=== PATIENT | female | born 1955 | race Caucasian/White ===

== ENCOUNTER → 2016-07-27 | Outpatient (CLI) | payer BC | LOC: GMAB 11:11 | PROVIDERS: ATTEND Family Medicine | DX: E55.9 Vitamin D deficiency, unspecified (principal); Z01.818 Encounter for other preprocedural examination ==

== ENCOUNTER → 2016-07-28 | Outpatient (CLI) | payer BC | LOC: GMAB 19:22 | PROVIDERS: ATTEND Family Medicine | DX: N39.0 Urinary tract infection, site not specified (principal) ==

== ENCOUNTER → 2016-08-04 | Outpatient (CLI) | payer BC | LOC: GMAB 17:45 | PROVIDERS: ATTEND Family Medicine | DX: N39.0 Urinary tract infection, site not specified (principal) ==

== ENCOUNTER → 2016-12-24 | Outpatient (CLI) | payer BC ==
--- NOTE | 2016-12-25 15:13 | CT ---
EXAM DESCRIPTION: CT ABDOMEN AND PELVIS WITHOUT AND WITH CONTRAST CLINICAL HISTORY: COMPLEX RENAL CYST COMPARISON: February 26, 2015 TECHNIQUE: CT of the abdomen and pelvis are performed prior to and during IV bolus administration of nonionic contrast. Oral contrast enhancement was not utilized This exam was performed according to our departmental dose-optimization program, which includes automated exposure control, adjustment of the mA and/or kV according to patient size and/or use of iterative reconstruction technique. FINDINGS: The lung bases are clear with normal cardiac size and no evidence of hiatal hernia or effusion or infiltrate Noncontrast imaging demonstrates surgical absence of the gallbladder and evidence of prior lumbosacral instrumentation and internal fixation diastases of the rectus muscles near the umbilicus with an eventration of the anterior abdominal wall at and just above the umbilicus is present with at least a small additional ventral hernia at the superior margin of the eventration the unenhanced liver and spleen are unremarkable. An oval approximate 3 x 4 cm exophytic low-density mass involving the mid left kidney posteriorly laterally is present and has attenuation values of approximately 17 Hounsfield units The oval cystic mass behind the left kidney is unchanged unenhanced examination with an attenuation value of 20 Hounsfield units and is stable in comparison to prior 2015 examination. No wall thickening or calcification or soft tissue mass component is noted. On the right there is a slightly lobulated 1.5 cm low-density probable cyst involving the posterior cortex of the mid right kidney that has increased from approximately 1 cm in size to 1.5 cm since 2015. Tiny focus of calcification posteriorly is evident. Attenuation value is between 19 and 24 Hounsfield units in measures actually slightly less on the enhanced study suggesting this represents a small complicated cyst. No significant solid component is noted. Because of interval enlargement since 2014 follow-up study in 6-9 months is recommended. The liver is fatty replaced and there is a focal 1.5 cm low-density lesion in the anterior aspect of the left lobe. The spleen and pancreas and adrenal glands are unremarkable. Hepatic sonography is recommended for further evaluation of the liver lesion lower pole of the right kidney posteriorly can be evaluated at the same time. Minimal levoscoliosis of the spine with the extensive five level hardware from L3 through the sacrum is noted IMPRESSION: 1. Stable approximate 3 x 4 cm relatively simple appearing left renal cyst posterior laterally. 2. 1.5 cm slightly lobulated and slightly enlarged right renal cyst involving the posterior mid kidney cortex with one tiny punctate area of calcification in the cyst wall. Slight interval growth over a two-year period is noted 3. Focal 1.5 cm nonspecific lesion left lobe of the liver anteriorly. Further evaluation of the liver and right kidney is sonographically is recommended. The right kidney will likely require longer term CT or MR follow-up for reassessment of the enlarging slightly complicated right renal cyst 4. 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 Extensive prior lower lumbar and sacral surgery with internal fixation. Electronically signed by: Fareed Mcgraw MD 12/25/2016 3:11 PM CDT
== END ==
LOC: CT 08:20
PROVIDERS: ATTEND Urology
DX: N28.1 Cyst of kidney, acquired (principal)

== ENCOUNTER → 2017-04-21 | Outpatient (CLI) | payer BC ==
--- NOTE | 2017-04-22 08:42 | CT ---
EXAM DESCRIPTION: Abdomen/Pelvis w/Contrast CLINICAL HISTORY: PAIN. Liver mass. COMPARISON: CT scan of the abdomen and pelvis without and with IV contrast 12/24/2016. CT abdomen with IV contrast 02/26/2015. TECHNIQUE: Spiral-axial scans at 5.0 mm intervals through the abdomen after nonionic IV contrast, arterial phase. Same interval scans, abdomen through pelvis, venous phase. No oral contrast. Coronal and sagittal 2.0 mm reconstructions. Delayed scans, liver through the pelvis. Axial-spiral 5mm. No adverse reactions. Total Exam DLP: 1893.47 mGy-cm. This exam was performed according to our departmental dose-optimization program which includes automated exposure control, adjustment of the mA and/or kV according to patient size and/or use of iterative reconstruction technique; to reduce radiation dose to as low as reasonably achievable (ALARA). FINDINGS: Lung bases and pleura: Negative. Liver, Stomach, Spleen, Adrenal Glands: In the arterial phase, the mass seen on the prior study shows minimal enhancement compared to the surrounding parenchyma. On the venous phase, the mass is enhancing less than the surrounding parenchyma. This mass is measuring 1.5 x 1.4 x 1.3 cm in the junction of the lateral and medial segments of the left hepatic lobe, approximately 2 cm from the anterior capsule. Increased but inhomogeneous enhancement in the mass on the delayed images. No other foci of enhancement are nonenhancement in the liver. Unusual distribution of gas abutting the anterior gastric wall of the greater curvature of the body. Normal density of the surrounding fat. Spleen and adrenal glands are unremarkable. Pancreas, Gallbladder, Ducts: Surgical clips in the gallbladder fossa with no fluid. Common duct not dilated. Pancreas negative. Kidneys and Ureters: 2 cm cyst posterior cortex of the right kidney. 3.5 cm cyst juxta cortical inferior left kidney. Anterior cortical atrophy left kidney which is smaller than the right kidney. No hydronephrosis no calcifications or perirenal fluid bilaterally. No radiodense stones in the ureters normal caliber. Mesentery: No free air. No fatty stranding and fluid or fascial thickening. Aorta: Mild to moderate atherosclerotic calcification. No aneurysm or significant ectasia. Small Bowel: Contains fluid and minimal gas no distention. Terminal Ileum/Cecum: Normal caliber with gas and fluid. Appendix not seen. Normal density of the surrounding fat. Colon: No distention. Surgical sutures indicating possible anastomosis at the rectosigmoid. Pelvic Organs: No radiodense stones in the urinary bladder. Vaginal cuff is unremarkable. No fluid in the cul-de-sac. Pelvic vascular calcifications. Spine and Bony Pelvis: L3-S1 posterior spinal fusion. Artifact limits evaluation of the bony structures of the vertebra. Minimal spondylosis lower thoracic spine. Posterior midline low-density in the junction of the subcutaneous fat and paraspinal muscles which has decreased in size since the prior study. Abdominal Wall/Back Soft Tissues: Minimal diastases of abdominal fat at the umbilicus not containing bowel. IMPRESSION: 1. Delayed enhancing mass in the lateral segment of the left hepatic lobe appears stable in size compared to prior scans in 2014 and December 2016. The appearance of the delayed enhancement is more consistent with a hemangioma. Consider follow-up hemangioma CT protocol in six month interval. 2. Stable renal cysts since 2014. 3. Stable lumbar spinal fusion since December 2016. Small fluid collection posterior midline subcutaneous tissues is decreasing. 4. Stable anastomosis rectosigmoid since December 2016. Electronically signed by: Kevan Edwards MD 04/22/2017 8:41 AM CDT
--- NOTE | 2017-04-22 14:54 | MAM ---
EXAM DESCRIPTION: 3D Screening BILATERAL CLINICAL HISTORY: 61 yearsFemaleSCREENING . No complaints. No family history breast cancer. Postmenopausal. Has taken HRT less than than five years ago. Cyst aspiration and biopsy on the right. COMPARISON: 2-D digital screening bilateral study 05/07/2015. No prior reports available. TECHNIQUE: Bilateral CC and MLO projection full-field images, 3-D tomosynthesis digital mammographic technique. Also bilateral synthesized CC/ MLO full-field images. CAD not utilized. FINDINGS: The breast parenchymal density pattern is: Scattered areas of fibroglandular density. No skin thickening or nipple retraction . Bilateral solitary microcalcifications. No focal, stellate mass or density, focal asymmetry , and no suspicious microcalcifications bilaterally. Stable mammograms compared to prior study, taking into account differences in mammographic technique IMPRESSION: BI-RADS CATEGORY: 2 - BENIGN FINDINGS. FOLLOW UP: Routine digital bilateral screening, one year interval from April 2017. Written communication explaining the IMPRESSION and follow-up, will be mailed to the patient and referring health care provider. According to the [employer], yearly mammograms are recommended starting at age 40 and continuing as long as a woman is in good health. Any breast change noted on a breast self-exam should be reported promptly to the patient's healthcare provider. Breast MRI is recommended for women with an approximately 20-25% or greater lifetime risk of breast cancer, including women with a strong family history of breast or ovarian cancer and women who have been treated for Hodgkin's disease. A negative mammographic report should not delay tissue diagnosis in patients with significant clinical history or physical findings. Extremely dense breast tissue limits the sensitivity of digital mammography. Electronically signed by: Kevan Edwards MD 04/22/2017 2:52 PM CDT
== END | disposition home or self-care (01) ==
LOC: CT 09:33
PROVIDERS: ATTEND Internal Medicine Infectious Disease
DX: Z12.31 Encounter for screening mammogram for malignant neoplasm of breast (principal); R16.0 Hepatomegaly, not elsewhere classified
CPT/HCPCS: 36415; 74177; 77063; 82565; 84520; G0202

== ENCOUNTER → 2017-05-31 | Outpatient (CLI) | payer BC | END | disposition home or self-care (01) | LOC: LAB.O 08:59 | PROVIDERS: ATTEND Internal Medicine Infectious Disease | DX: Z00.00 Encounter for general adult medical examination without abnormal findings (principal); B96.89 Other specified bacterial agents as the cause of diseases classified elsewhere ==

== ENCOUNTER → 2017-07-08 | Outpatient (CLI) | payer BC | END | disposition home or self-care (01) | LOC: GMAB 10:17 | PROVIDERS: ATTEND Family Medicine | DX: N39.0 Urinary tract infection, site not specified (principal); Z00.01 Encounter for general adult medical examination with abnormal findings ==

== ENCOUNTER → 2018-04-18 | Outpatient (CLI) | payer BC ==
--- NOTE | 2018-04-18 13:15 | CT ---
EXAM DESCRIPTION: Abdomen w/wo Contrast CLINICAL HISTORY: 62 years Female, CYST OF KIDNEY COMPARISON: CT abdomen and pelvis dated April 21, 2017. TECHNIQUE: Contiguous axial images through the abdomen were performed with and without intravenous contrast administration. FINDINGS: The imaged lower thorax appears normal. The liver demonstrates diffuse fatty infiltration. The gallbladder is surgically absent. The pancreas, spleen and bilateral adrenal glands appear normal. Stable exophytic simple cyst in the interpolar region of the left kidney. Stable 1.7 cm hypodense lesion in the interpolar region of the right kidney compared to prior CT dated 04/21/2017. The distal esophagus, stomach, small and large bowel loops appear normal. 2.5 cm fat-containing ventral hernia is noted. Posterior spinal fixation hardware is noted traversing the lower lumbar spine. IMPRESSION: Stable cystic lesions are identified in bilateral kidneys. Hepatic steatosis. This exam was performed according to our departmental dose-optimization program, which includes automated exposure control, adjustment of the mA and/or kV according to patient size and/or use of iterative reconstruction technique. Electronically signed by: Radha Arzola MD 04/18/2018 1:14 PM CDT
== END ==
LOC: CT 08:28
PROVIDERS: ATTEND Urology
DX: N28.1 Cyst of kidney, acquired (principal); K76.0 Fatty (change of) liver, not elsewhere classified

== ENCOUNTER → 2018-04-25 | Outpatient (CLI) | payer BC ==
--- NOTE | 2018-04-26 19:47 | MAM ---
EXAM DESCRIPTION: 3D Screening BILATERAL : Digital Mammography. CLINICAL HISTORY: 62 years Female SCREENING . No complaints. No personal history or family history of breast cancer. Prior benign right breast biopsy. Childbirth. Postmenopausal 25 years. Taken HRT 5 or more years ago.. Lifetime risk of developing breast cancer (Tyrer-Cuzick model)(%): 10.2. COMPARISON: Bilateral screening digital breast tomosynthesis 04/21/2017. TECHNIQUE: Bilateral CC and MLO projection full-field images, Digital tomosynthesis mammographic technique. Bilateral digital 2-D full-field MLO images. CAD not utilized. FINDINGS: The breast parenchymal density pattern is: Scattered areas of fibroglandular density. No skin thickening or nipple retraction. Right axillary lymph nodes. Bilateral solitary microcalcifications. Small nodular mass density which is interpreted to have enlarged since the prior study and is at the 300 clock position of the anterior and middle thirds of the right breast. No new focal, stellate mass or density, focal asymmetry , and no suspicious microcalcifications left breast. IMPRESSION: BI-RADS CATEGORY: 0 - INCOMPLETE- Need additional imaging evaluation. FOLLOW-UP: Recall for additional imaging: Full-field tomosynthesis of the right breast, special focal images, and targeted right breast ultrasound if indicated by diagnostic images. Written communication concerning the IMPRESSION and Follow-up, will be mailed to the patient and referring health care provider. Electronically signed by: Kevan Edwards MD 04/26/2018 7:46 PM CDT
== END ==
LOC: MAMMO 11:30
PROVIDERS: ATTEND Family Medicine
DX: Z12.31 Encounter for screening mammogram for malignant neoplasm of breast (principal)

== ENCOUNTER → 2018-05-03 | Outpatient (CLI) | payer BC ==
--- NOTE | 2018-05-03 16:27 | US ---
EXAM DESCRIPTION: Breast,Right: Ultrasound CLINICAL HISTORY: 62 yearsFemaleABN MAMMO COMPARISON: Digital diagnostic tomosynthesis right breast on this visit. Bilateral screening digital breast tomosynthesis 04/25/2018. TECHNIQUE: Transcutaneous scanning of the right breast utilizing mulligan-scale and Doppler modes. Scanning performed by the auto body painter and Dr. Edwards. FINDINGS: Scanning medial right breast. Heterogeneous fibroglandular and fatty echotexture. At the 3:30 position of the right breast 2 cm from the nipple is a hypoechoic mass with circumscribed margins and echogenic eccentric region and minimal posterior shadowing features. Parallel orientation measuring 4.7 x 3.1 mm and not vascular. Differential includes lymph node and fibroadenoma. Scanning at the 2:30 clock position 2 cm from the nipple. Heterogeneous structure with lobulated and smooth margins mostly hypoechoic measuring 5.2 x 5.1 x 4.4 mm with posterior shadowing and parallel features. Echogenic region within this nodule is vascular suggesting a lymph node. At the 3:00 position 2 cm from the nipple is a hypoechoic nodule with lobular and circumscribed margins measuring 5.4 mm. Mixed posterior enhancement and shadowing. Nonvascular. Multiple ducts are also noted in the retroareolar tissue. IMPRESSION: BI-RADS CATEGORY: 3 - PROBABLY BENIGN. Management: Short interval (6-month) follow-up mammography with continued surveillance targeted right breast ultrasound, September 2018. The FINDINGS and the FOLLOW-UP plan were reviewed in person with the patient after the examination. Written communication explaining the IMPRESSION and FOLLOW-UP will be mailed to the patient and referring care provider. Electronically signed by: Kevan Edwards MD 05/03/2018 4:26 PM CDT
--- NOTE | 2018-05-04 14:29 | MAM ---
EXAM DESCRIPTION: 3D Diagnostic, Right: Digital Mammography CLINICAL HISTORY: 62 yearsFemaleABNORMAL MAMMO . Mass density medial mid right breast.. COMPARISON: Bilateral screening digital breast tomosynthesis 04/25/2018. Targeted right breast ultrasound included with this examination.. TECHNIQUE: Right LM projection full-field images, digital mammographic tomosynthesis technique. Spot digital imaging of the anterior medial right breast in the CC and MLO projections. CAD not utilized. FINDINGS: The breast parenchymal density pattern is: Scattered areas of fibroglandular density. No skin thickening or nipple retraction mass density with partially circumscribed margins is again visualized at the 300 clock position 3 to 4 cm from the breast just medial to the posterior nipple line. No abnormal microcalcifications. Ultrasound: Scanning medial right breast. Heterogeneous fibroglandular and fatty echotexture. At the 3:30 position of the right breast 2 cm from the nipple is a hypoechoic mass with circumscribed margins and echogenic eccentric region and minimal posterior shadowing features. Parallel orientation measuring 4.7 x 3.1 mm and not vascular. Differential includes lymph node and fibroadenoma. Scanning at the 2:30 clock position 2 cm from the nipple. Heterogeneous structure with lobulated and smooth margins mostly hypoechoic measuring 5.2 x 5.1 x 4.4 mm with posterior shadowing and parallel features. Echogenic region within this nodule is vascular suggesting a lymph node. At the 3:00 position 2 cm from the nipple is a hypoechoic nodule with lobular and circumscribed margins measuring 5.4 mm. Mixed posterior enhancement and shadowing. Nonvascular. Multiple ducts are also noted in the retroareolar tissue. IMPRESSION: BI-RADS CATEGORY: 3 - PROBABLY BENIGN. Management: Short interval (6-month) follow-up digital diagnostic right breast mammography and continued surveillance targeted right breast ultrasound. The FINDINGS and the FOLLOW-UP plan were reviewed in person with the patient after the examination. Written communication explaining the IMPRESSION and FOLLOW-UP will be mailed to the patient and referring care provider. Electronically signed by: Keavn Edwards MD 05/04/2018 2:20 PM CDT
== END ==
LOC: MAMMO 08:52
PROVIDERS: ATTEND Family Medicine
DX: R92.2 Inconclusive mammogram (principal)
CPT/HCPCS: 76641; 77065; G0279

== ENCOUNTER → 2018-07-23 | Outpatient (CLI) | payer BC ==
--- NOTE | 2018-07-23 10:41 | RAD ---
PROCEDURE: XR Left Tibia and Fibula, 2 Views CLINICAL INDICATION: The patient is 63 years old and is Female; LEG PAIN TECHNIQUE: Frontal and lateral views of the left tibia and fibula. COMPARISON: No relevant prior studies available. FINDINGS: BONES/JOINTS: There is a complete transverse noncomminuted nondisplaced fracture through the proximal one third of the LEFT fibula. SOFT TISSUES: There is overlying lateral soft tissue swelling. IMPRESSION: There is a complete transverse noncomminuted nondisplaced fracture through the proximal one third of the LEFT fibula. Electronically signed by: Yonathan Junior MD 07/23/2018 10:40 AM [facility]
== END ==
LOC: RAD 10:06
PROVIDERS: ATTEND Physician Assistant
DX: S82.832A Other fracture of upper and lower end of left fibula, initial encounter for closed fracture (principal)

== ENCOUNTER → 2018-09-06 | Outpatient (CLI) | payer BC | LOC: GMAE 10:47 | PROVIDERS: ATTEND Family Medicine | DX: Z00.01 Encounter for general adult medical examination with abnormal findings (principal) ==

== ENCOUNTER → 2018-09-14 | Outpatient (CLI) | payer BC ==
--- NOTE | 2018-09-15 10:54 | MAM ---
EXAM DESCRIPTION: 3D Diagnostic, Right: Digital Mammography CLINICAL HISTORY: 63 yearsFemale6 MONTH FOLLOW UP nodular densities right breast mammography and ultrasound. COMPARISON: Bilateral screening digital breast tomosynthesis 04/25/2018. Right breast targeted ultrasound and right breast diagnostic digital breast tomosynthesis 05/03/2018. TECHNIQUE: Right breast LM CC and MLO projection full-field images, digital mammographic tomosynthesis technique. Right breast 2-D digital full-field MLO images. Right breast 2-D Spot compression cc and MLO projections CAD not available. FINDINGS: The breast parenchymal density pattern is: Scattered areas of fibroglandular density. No skin thickening or nipple retraction solitary microcalcifications. Enlarging retroareolar density compared to the prior study. No abnormal microcalcifications. Ultrasound: Scanning of the anterior right breast retroareolar and right upper quadrant from the nipple to 2 cm posteriorly. Mixture of fibroglandular fibrocystic and fatty echotexture is. At the 2:30 position 2 cm from the nipple, is a hypoechoic mass with lobulated and circumscribed margins partly partially echogenic margins. Taller than wide orientation 4.3 x 3.1 mm. Vascularity on one aspect. 6 mm on the oblique axis with minimal posterior shadowing. This nodule has enlarged slightly since the prior study. Some images show relationship of this nodule to the nipple. Smaller hypoechoic nodule with circumscribed and lobulated margins measuring 4.0 x 2.7 x 2.5 mm with central echogenicity but no vascularity. Partial acoustic shadowing and enhancement posteriorly. Stable since the prior study. Wider than tall orientation. Another nodule is hypoechoic with central echogenicity and no significant vascularity measuring 4.0 x 4.1 x 2.9 mm wider than tall and partial posterior acoustic enhancement and shadowing. Stable since the prior study. No distinct cysts seen in the anterior right breast. No parenchymal edema or large calcifications. No overlying skin changes. IMPRESSION: BI-RADS CATEGORY 4: SUSPICIOUS. SUB-CATEGORY 4A - LOW SUSPICION FOR MALIGNANCY. Surgical consultation and tissue diagnosis should be considered. The FINDINGS and FOLLOW-UP plan were reviewed in person with the patient following the examination. Written communication explaining the IMPRESSION and FOLLOW-UP will be mailed to the patient and referring care provider. CRITICAL COMMUNICATION: The critical value was discussed directly by phone with Dr. Elmer Shore at approximately 1625 hours, on September 14, 2018. Electronically signed by: Kevan Edwards MD 09/15/2018 10:51 AM [facility]
--- NOTE | 2018-09-15 11:10 | US ---
EXAM DESCRIPTION: Breast,Right: Ultrasound CLINICAL HISTORY: 63 yearsFemale6 MONTH FOLLOW UP COMPARISON: right breast diagnostic digital breast tomosynthesis same date. Targeted right breast ultrasound 05/04/2018. TECHNIQUE: Transcutaneous scanning of the right breast utilizing mulligan-scale and Doppler modes. Scanning performed by the adjustment examiner and Dr. Edwards. FINDINGS: Scanning of the anterior right breast retroareolar and right upper quadrant from the nipple to 2 cm posteriorly. Mixture of fibroglandular fibrocystic and fatty echotexture is. At the 2:30 position 2 cm from the nipple, is a hypoechoic mass with lobulated and circumscribed margins partly partially echogenic margins. Taller than wide orientation 4.3 x 3.1 mm. Vascularity on one aspect. 6 mm on the oblique axis with minimal posterior shadowing. This nodule has enlarged slightly since the prior study. Some images show relationship of this nodule to the nipple. Smaller hypoechoic nodule with circumscribed and lobulated margins measuring 4.0 x 2.7 x 2.5 mm with central echogenicity but no vascularity. Partial acoustic shadowing and enhancement posteriorly. Stable since the prior study. Wider than tall orientation. Another nodule is hypoechoic with central echogenicity and no significant vascularity measuring 4.0 x 4.1 x 2.9 mm wider than tall and partial posterior acoustic enhancement and shadowing. Stable since the prior study. No distinct cysts seen in the anterior right breast. No parenchymal edema or large calcifications. No overlying skin changes. IMPRESSION: 1. BI-RADS CATEGORY: 4 - SUSPICIOUS. SUB - CATEGORY 4A: LOW SUSPICION FOR MALIGNANCY. 2. Please refer to right breast diagnostic digital breast tomosynthesis same date. The FINDINGS and various follow-up plans were reviewed in person with the patient after the examination. Written communication explaining the IMPRESSION and FOLLOW-UP will be mailed to the patient and referring care provider CRITICAL COMMUNICATION: The critical value was discussed directly by phone with Dr. Elmer Shore at approximately 1625 hours, on September 14, 2018. Electronically signed by: Kevan Edwards MD 09/15/2018 11:07 AM TELLER COORDINATOR
== END ==
LOC: US 15:04
PROVIDERS: ATTEND Family Medicine
DX: R92.2 Inconclusive mammogram (principal)
CPT/HCPCS: 76641; 77065; G0279

== ENCOUNTER → 2018-10-06 | Outpatient (CLI) | payer BC ==
--- NOTE | 2018-10-06 12:02 | OP ---
DATE OF PROCEDURE: 10/06/18 PREOPERATIVE DIAGNOSIS: 1. Abnormal right mammogram with two lesions, one at 2:30 and one at 3 o'clock. POSTOPERATIVE DIAGNOSIS: 1. Abnormal right mammogram with two lesions, one at 2:30 and one at 3 o'clock. PROCEDURE: 1. Sonographically guided needle core biopsy, right breast mass times 2. SURGEON: Horacio Castillo MD. HOTHOUSE WORKER: None. ANESTHESIA: Local infiltration of 1% lidocaine. INDICATION: The patient is a 63-year-old female who was found to have an abnormal mammogram revealing two distinct lesions, one that shadowed, one that was within a short distance and had mild irregularity. She was brought to the Ultrasound Department today for biopsy after the risks, benefits and alternatives to the procedure were discussed and accepted. FINDINGS: The lesion was identified on sonography and multiple passes were made through both lesions. Pathology is pending. PROCEDURE: The patient was brought to the Ultrasound Suite and placed in the supine position. The right breast was inspected using the ultrasound probe and the lesions were identified. The breast medial to the nipple and the probe was prepped with Betadine paint and draped. Local infiltration of anesthesia was obtained with 1% lidocaine. A stab wound was made with a 15 blade and after anesthetizing the track with the 25-gauge needle, the biopsy needle was introduced to the first with the lesion at 2:30 which is the lesion that shadowed. Multiple passes were taken. The tissue was sent for pathological evaluation. When this was done, a new biopsy gun was obtained and the second lesion was identified. Passes were made through it through the same stab wound. Biopsies were taken. Hemostasis was obtained with pressure. A single suture of 4-0 Nylon was placed in the incision. Sterile pressure dressing was applied. The patient tolerated the procedure well. Estimated blood loss was less than 5 mL. [id number]
--- NOTE | 2018-10-07 10:12 | US ---
EXAM DESCRIPTION: Biopsy/Needle Guidance: Ultrasound. CLINICAL HISTORY: 63 years Female ABNORMAL MAMMO. Right breast abnormal lesion on ultrasound. COMPARISON: Diagnostic ultrasound of the right breast on 09/14/2018. TECHNIQUE: The procedure was performed by Dr. Castillo. Repeat ultrasound localized right breast lesion at the 2:30 position of the right breast 2 cm from the nipple.. Sterile preparation. Sterile ultrasound guidance during needle passes. FINDINGS: Multiple images show the echogenic needle passing through the lesion of interest. Taller than wide appearance again seen. No abnormal fluid collection IMPRESSION: Successful, ultrasound-guided needle core biopsy of right breast lesion 2:30 position 2 cm from the nipple. Adequate core samples were obtained. Pathology examination at remote facility, results pending. Electronically signed by: Kevan Edwards MD 10/07/2018 10:08 AM CDT
--- NOTE | 2018-10-07 10:17 | US ---
EXAM DESCRIPTION: Biopsy/Needle Guidance: Ultrasound. CLINICAL HISTORY: 63 years Female ABNORMAL MAMMO. Abnormal right breast lesion ultrasound. COMPARISON: Diagnostic ultrasound of the right breast on 09/14/2018 TECHNIQUE: The procedure was performed by Dr. Castillo. Repeat ultrasound localized right breast lesion at the 3:00 position of the right breast 2 cm from the nipple.. Sterile preparation. Sterile ultrasound guidance during needle passes. FINDINGS: Multiple images show the echogenic needle passing through the hypoechoic lesion of interest, 4 x 4 millimeter dimension. 3:00 position, 2 cm from the nipple. No new abnormal fluid collection or new soft tissue mass demonstrated during the biopsy. IMPRESSION: Successful, ultrasound-guided core needle biopsy of second right breast mass. This mass located at 3:00 position 2 cm from the right nipple. Adequate core samples were obtained. Pathology examination at remote facility, results pending. Electronically signed by: Kevan Edwards MD 10/07/2018 10:14 AM CDT
== END ==
LOC: US 10:24
PROVIDERS: ATTEND Surgery
DX: R92.8 Other abnormal and inconclusive findings on diagnostic imaging of breast (principal)

== ENCOUNTER → 2018-10-10 | Outpatient (CLI) | payer BC ==
--- NOTE | 2018-10-10 12:07 | US ---
EXAM DESCRIPTION: Renal: Ultrasound. CLINICAL HISTORY: 63 years Female CYST OF KIDNEY COMPARISON: CT scan abdomen and pelvis with contrast 02/26/2015. TECHNIQUE: Transcutaneous scanning: Two-dimensional and Doppler modes. FINDINGS: Right kidney measures 10.1 x 6.3 x 5.3 cm; mid-renal cortical thickness 14 mm. Normal cortical echogenicity. 11 x 11 mm anechoic cyst with echogenic rim or calcification. .echogenicity. No hydronephrosis No echogenic stones. Smooth contour of the kidney with no perinephric fluid. Normal vascularity. Proximal ureter not visualized. Left kidney measures 9.3 x 4.8 x 4.6 cm; mid-renal cortical thicknessnumber. echogenicity. No hydronephrosis. No echogenic stones. 4.0 x 3.2 cm simple cyst with circumscribed thin gilbert, no echoes, and posterior acoustic enhancement. Except for the large cyst, smooth contour of the kidney with no perinephric fluid. Normal vascularity.. Proximal ureter not visualized. Urinary bladder was visualized. Ureteral jet in the bladder not evaluated. Abdominal aorta: not measured. IMPRESSION: 1. Right kidney with a 11 mm mostly anechoic cyst and partial rim calcification versus urinary tract stone abutting the cyst. No follow-up recommended. 2. Left kidney smaller than the right kidney with a 4 cm simple cyst projecting from the capsule of the lower pole. Also seen on the prior CT scan. Electronically signed by: Kevan Edwards MD 10/10/2018 12:04 PM CDT
== END ==
LOC: US 11:04
PROVIDERS: ATTEND Urology
DX: N28.1 Cyst of kidney, acquired (principal)

== ENCOUNTER → 2019-04-05 | Outpatient (CLI) | payer BC ==
--- NOTE | 2019-04-05 17:30 | US ---
EXAM DESCRIPTION: 3D Diagnostic, Right (accession [id number]), Breast,Right (accession [id number]): Ultrasound CLINICAL HISTORY: 63 yearsFemaleFOLLOW UP NEG BX anterior upper inner quadrant right breast. Lifetime risk of developing breast cancer (Tyrer-Cuzick model)(%): Not calculated COMPARISON: Bilateral screening digital breast tomosynthesis April 25, 2018. 3-D Lauren synthesis diagnostic right breast 05/03/2018 with targeted right breast ultrasound. Diagnostic right breast tomosynthesis and directed ultrasound 09/14/2018. Ultrasound-guided needle core biopsy right breast mass 10/06/2018. TECHNIQUE: Right breast LM, CC, and MLO projection full-field images, digital mammographic tomosynthesis technique. Right breast 2-D digital full-field images. LM, CC, and MLO projections. CAD not available. . Transcutaneous scanning of the right breast utilizing mulligan-scale and Doppler modes. Scanning performed by the diesel locomotive crane operator and Dr. Edwards. FINDINGS: The breast parenchymal density pattern is: Scattered areas of fibroglandular density. No skin thickening or nipple retraction the nodular density seen on the prior diagnostic study is not well seen on the study. No new focal, stellate mass or density, focal asymmetry , and no suspicious microcalcifications right breast. Ultrasound: Scanning of the upper inner quadrant of the anterior right breast. Mixture of fibroglandular and fatty echotextures. Hypoechoic nodule circumscribed with measuring 2.5 x 2.7 mm. Wider than tall orientation. Nonvascular. Mixed posterior acoustic features. Similar appearing nodule nearby soft tissues measures 5.3 x 4.7 mm. Not vascular. Wider than tall orientation. The smaller nodule appears stable but the larger nodule has decreased in size since the biopsy. No dominant solid mass or distinct cyst. No large calcifications. No abnormal vascularity. IMPRESSION: Benign exam. BIRAD CATEGORY: 2 BENIGN FINDINGS. RECOMMENDATIONS: FOLLOW UP: Return to routine digital bilateral mammographic screening, after April 2019, one year anniversary date of routine screening left breast. Written communication explaining the IMPRESSION and follow-up, will be mailed to the patient and referring health care provider. The FINDINGS and the FOLLOW-UP plan were reviewed in person with the patient after the examination. According to the [employer], yearly mammograms are recommended starting at age 40 and continuing as long as a woman is in good health. Any breast change noted on a breast self-exam should be reported promptly to the patient's healthcare provider. Breast MRI is recommended for women with an approximately 20-25% or greater lifetime risk of breast cancer, including women with a strong family history of breast or ovarian cancer and women who have been treated for Hodgkin's disease. A negative mammographic report should not delay tissue diagnosis in patients with significant clinical history or physical findings. Extremely dense breast tissue limits the sensitivity of digital mammography. Electronically signed by: Kevan Edwards MD 04/05/2019 5:28 PM CDT
== END ==
LOC: MAMMO 09:47
PROVIDERS: ATTEND Family Medicine
DX: Z98.890 Other specified postprocedural states (principal)
CPT/HCPCS: 76641; 77065; G0279

== ENCOUNTER 2019-08-03 15:30 | Outpatient (CLI) | payer BC ==
[2019-08-03 15:40] VITALS: BP 106/71; TEMP 97.9; O2SAT 96
== END 2019-08-03 15:44 | disposition home or self-care (01) ==
LOC: INFRM 15:30
PROVIDERS: ATTEND Internal Medicine Infectious Disease
DX: M27.2 Inflammatory conditions of jaws (principal); Z45.2 Encounter for adjustment and management of vascular access device

== ENCOUNTER → 2019-10-11 | Outpatient (CLI) | payer BC | LOC: GMAE 11:35 | PROVIDERS: ATTEND Family Medicine | DX: Z00.00 Encounter for general adult medical examination without abnormal findings (principal) ==

== ENCOUNTER → 2019-11-27 | Outpatient (CLI) | payer BC | LOC: GMAE 16:40 | PROVIDERS: ATTEND Family Medicine | DX: M06.9 Rheumatoid arthritis, unspecified (principal); M10.9 Gout, unspecified ==

== ENCOUNTER → 2020-02-08 | Outpatient (CLI) | payer BC ==
--- NOTE | 2020-02-08 16:06 | US ---
EXAM DESCRIPTION: Renal: Ultrasound. CLINICAL HISTORY: 64 years Female CYST OF KIDNEY COMPARISON: None TECHNIQUE: Transcutaneous scanning: Two-dimensional and Doppler modes. FINDINGS: Right kidney measures 10.1 x 5.9 x 4.8 cm; volume 150.2 ml. Mid-renal cortical thickness 12 mm . Normal cortical echogenicity. No hydronephrosis No echogenic stones. 1.6 x 1.3 cm simple cyst. Smooth contour of the kidney with no perinephric fluid. Normal vascularity. Proximal ureter not visualized. Left kidney measures 8.9 x 5.3 x 5.3 cm; volume 131.7 ml. Mid-renal cortical thickness 10 mm. Increased echogenicity greater than the liver. No hydronephrosis. No echogenic stones. 3.9 x 3.4 x 2.1 cm mid renal simple cyst. Otherwise lobulated contour of the kidney with no perinephric fluid. Normal vascularity.. Proximal ureter not visualized.. Urinary bladder was visualized. 18.8 mL initial volume (patient voided prior to the procedure.) Ureteral jet in the bladder not seen by color Doppler. No voiding. Abdominal aorta: Normal caliber from the proximal segment to the distal bifurcation. Question of increased echogenicity of the liver. IMPRESSION: 1. Right kidney is unremarkable except for 1.6 cm simple cyst. Question of increased echogenicity in the liver. 2. Smaller left kidney with thinner more echogenic cortex could be due to medical renal disease or renal artery abnormality. 3.9 cm cyst. 3. Small bladder due to previous voiding. Normal caliber of the abdominal aorta. Electronically signed by: Kevan Edwards MD 02/08/2020 4:04 PM CDT
== END ==
LOC: US 08:30
PROVIDERS: ATTEND Urology
DX: N28.1 Cyst of kidney, acquired (principal); N28.9 Disorder of kidney and ureter, unspecified

== ENCOUNTER → 2020-02-26 | Outpatient (CLI) | payer BC | LOC: GMAE 14:44 | PROVIDERS: ATTEND Family Medicine | DX: M06.9 Rheumatoid arthritis, unspecified (principal) ==

== ENCOUNTER → 2020-04-16 | Outpatient (CLI) | payer BC ==
--- NOTE | 2020-04-17 17:07 | MAM ---
EXAM DESCRIPTION: 3D Screening BILATERAL : Digital Mammography. CLINICAL HISTORY: 64 years Female ANNUAL SCREENING . No complaints and no family history of breast cancer. Benign bilateral breast biopsies. Menarche age 14. Childbirth age 29. Menopause age 29. HRT 5 or more years ago. Lifetime risk of developing breast cancer (Tyrer-Cuzick model)(%): 12.1. COMPARISON: Diagnostic right breast digital tomosynthesis March 2019 and September 2018 with ultrasound and ultrasound-guided needle core biopsy anterior right breast. Also bilateral screening digital breast tomosynthesis April 2018. TECHNIQUE: Bilateral CC and MLO projection full-field images, digital tomosynthesis mammographic technique. Bilateral digital 2-D full-field MLO images. CAD available for 2-D images. FINDINGS: The breast parenchymal density pattern is: Scattered areas of fibroglandular density. No skin thickening or nipple retraction. Nodular-type fibroglandular tissues bilaterally. Solitary microcalcifications. Vascular calcifications. No new focal, stellate mass or density, focal asymmetry , and no suspicious microcalcifications bilaterally. Stable mammograms compared to prior study. Taking into account, differences in mammographic technique. IMPRESSION: Benign exam. BIRAD CATEGORY: 2 BENIGN FINDINGS. RECOMMENDATIONS: FOLLOW UP: Routine digital bilateral mammographic screening, one year interval from April 2020. Written communication explaining the IMPRESSION and follow-up, will be mailed to the patient and referring health care provider. According to the [employer], yearly mammograms are recommended starting at age 40 and continuing as long as a woman is in good health. Any breast change noted on a breast self-exam should be reported promptly to the patient's healthcare provider. Breast MRI is recommended for women with an approximately 20-25% or greater lifetime risk of breast cancer, including women with a strong family history of breast or ovarian cancer and women who have been treated for Hodgkin's disease. A negative mammographic report should not delay tissue diagnosis in patients with significant clinical history or physical findings. Extremely dense breast tissue limits the sensitivity of digital mammography. Electronically signed by: Kevan Edwards MD 04/17/2020 5:05 PM CDT
== END ==
LOC: MAMMO 14:41
PROVIDERS: ATTEND Surgery
DX: Z12.31 Encounter for screening mammogram for malignant neoplasm of breast (principal)

== ENCOUNTER 2020-05-21 11:22 | Observation (INO) | payer BC ==
--- NOTE | 2020-05-21 11:25 | ED.PDOC ---
History of Present Illness - General Time Seen by Provider: 05/21/20 11:24 Source: patient - History of Present Illness Initial Comments: 64 yo female with PMH of HTN, asthma who presents with chief complaint of shortness of breath. Patient states illness and symptoms began about 1 week ago. She states she tested positive for COVID-19 6 days ago. She reports marked worsening of shortness of breath since last night and this morning. States she feels like she is having a lot of drainage down the back of her throat and feels like she can't take a full breath. Now rates as constant and severe in nature, worse with activity/exertion, tried her home albuterol inhaler with little relief. No other medications taken besides her home meds. Additionally she reports symptoms of tightness in the center of her chest, headaches, body aches, cough productive for clear sputum, sore throat, occasional subjective fevers/chills. Denies abdominal pain, nausea/vomiting/diarrhea, urinary symptoms, leg swelling. PCP is Dr. Shore. Patient was referred from the clinic this morning - sent over to the ED for further evaluation. Allergies/Adverse Reactions: Allergies Codeine Allergy (Verified 05/21/20 11:55) Methotrexate Allergy (Verified 05/21/20 11:55) Home Medications: Ambulatory Orders LORazepam [Ativan] 0.25 mg PO Q6HR PRN #7 tab 08/23/15 Review of Systems - Review of Systems Review of Systems: 05/21/20 11:40 as per HPI All other Systems: Reviewed and Negative Past Medical History (General) - Patient Medical History Hx Stroke: No Hx Dementia: No - just can't stay focused Hx Asthma: Yes Hx Hypertension: Yes Hx Thyroid Disease: No Hx Gastroesophageal Reflux: Yes Hx Renal Disease: Yes Hx Cancer: No Hx Hepatitis C: No Hx MRSA: No MRSA Source:: Wound - Vaccination History Hx Influenza Vaccination: Yes - Social History Hx Tobacco Use: No Hx Alcohol Use: Yes - occ Hx Depression: Yes Hx Physical Abuse: No Hx Emotional Abuse: No Hx Suspected Abuse: No - Female History Patient : No Family Medical History - Family History Mother Family History: Unknown Physical Exam - Physical Exam General Appearance: Alert, Anxious, No apparent distress Eye Exam: bilateral normal Ears, Nose, Throat: hearing grossly normal, normal ENT inspection, normal pharynx Neck: non-tender, full range of motion, supple, normal inspection Respiratory: no accessory muscle use, rales - Faint bibasilar rales w/o wheezing/rhonchi, good air movement throughout, other - speaking in short senten charles Cardiovascular/Chest: normal peripheral pulses, regular rate, rhythm, no edema, no gallop, no JVD, no murmur Peripheral Pulses: radial,right: 2+, radial,left: 2+ Gastrointestinal/Abdominal: non tender, soft, no organomegaly Back Exam: normal inspection, no CVA tenderness Extremity: normal range of motion, non-tender, normal inspection, no pedal edema, no calf tenderness, normal capillary refill Neurologic: electrical automation engineer II-XII nml as tested, no motor/sensory deficits, alert, normal mood/affect, oriented x 3 Skin Exam: normal color, warm/dry Progress - Progress Progress: 05/21/20 11:41 Dyspnea -suspect due to COVID-19 PNA. Consider also asthma exacerbation, bacterial PNA, ACS, PE, CHF, anxiety, other -pt stable upon ED arrival - SpO2 99% RA, BP 108/52, afebrile, good air movement throughout -obtain stat COVID-19 panel, cardiac work-up, flu swab, strep swab, UA -place PIV, 1 L NS bolus, Duonebs, IV Decadron 6 mg 05/21/20 13:31 -Patient reports dyspnea moderately improved with ED treatment. Remains stable. Labs reveal rapid strep positive, WBC 6,700 with 80% segs, no bands. Also d- dimer slightly elevated 566. BUN 27, Cr 1.6, trop 0.02, BNP <15. LDH 191, CRP 6.6. -Discussed all findings with patient as well as diagnoses of COVID-19 pneumonia, acute asthma exacerbation, acute kidney injury, strep pharyngitis. Given her dyspnea/asthma exacerbation and risk factors as well as abnormal labs and kidney injury, recommend admission for further treatment. Patient is in agreement. Erickson Reed accepts the patient for admission. In the ED will give Rocephin 1 g IV and azithromycin 500 mg IV as well as normal saline 1 L bolus. Erickson Reed will continue other treatments including Lovenox. Santosh Contreras MD Billing #[id number] 05/21/20 11:24 IV Care:Saline Lock per [employer]toc STAT Isolation:Airborne ONCE Telemetry STAT 05/21/20 11:25 UA [URINALYSIS] Stat 05/21/20 11:30 EKG STAT Pulse Ox, Continuous Monitoring STAT 05/21/20 13:29 Azithromycin IV [Zithromax IV] 500 mg Sodium Chloride 0.9% 250Ml [NS 250ml] 250 ml IVPB ONCE BOLUS Sodium Chloride 0.9% 1000ML [Ns 1000 ml] 1,000 ml IVS ONCE cefTRIAXone SODIUM [Rocephin] 1 gm Sodium Chl 0.9% 50Ml Min-Bag+ [NS 50ml MINI-BAG+] 50 ml IVPB ONCE 05/22/20 11:30 Pulse Ox, Continuous Monitoring STAT 05/23/20 11:30 Pulse Ox, Continuous Monitoring STAT Laboratory Results - last 24 hr 05/21/20 05/21/20 05/21/20 12:10 12:10 12:10 WBC 6.7 RBC 4.57 Hgb 13.1 Hct 38.6 MCV 84.5 MCH 28.7 MCHC 34.0 RDW 16.8 H Plt Count 160 MPV 7.9 Absolute Neuts (auto) 5.40 Absolute Lymphs (auto) 0.80 L Absolute Monos (auto) 0.50 Absolute Eos (auto) 0.00 Absolute Basos (auto) 0.00 Neutrophils % 80.0 H Lymphocytes % 12.3 L Monocytes % 6.8 Eosinophils % 0.3 L Basophils % 0.6 PTT (SP) 27.3 D-Dimer, Quantitative 566.0 H Sodium 132 L Potassium 3.5 L Chloride 96 L Carbon Dioxide 21 Anion Gap 18.5 H BUN 27 H Creatinine 1.67 H BUN/Creatinine Ratio 16.2 Random Glucose 118 H Serum Osmolality 270.7 L Calcium 9.1 Magnesium 1.9 Total Bilirubin 0.7 AST 50 H ALT 47 Alkaline Phosphatase 95 LD Total 191 H Creatine Kinase 74 Troponin I C-Reactive Protein 6.6 H B-Natriuretic Peptide < 15.0 Serum Total Protein 7.3 Albumin 3.7 Globulin 3.6 H Albumin/Globulin Ratio 1.0 L Group A Strep Rapid 05/21/20 05/21/20 12:10 12:10 WBC RBC Hgb Hct MCV MCH MCHC RDW Plt Count MPV Absolute Neuts (auto) Absolute Lymphs (auto) Absolute Monos (auto) Absolute Eos (auto) Absolute Basos (auto) Neutrophils % Lymphocytes % Monocytes % Eosinophils % Basophils % PTT (SP) D-Dimer, Quantitative Sodium Potassium Chloride Carbon Dioxide Anion Gap BUN Creatinine BUN/Creatinine Ratio Random Glucose Serum Osmolality Calcium Magnesium Total Bilirubin AST ALT Alkaline Phosphatase LD Total Creatine Kinase Troponin I < 0.02 C-Reactive Protein B-Natriuretic Peptide Serum Total Protein Albumin Globulin Albumin/Globulin Ratio Group A Strep Rapid Positive H - EKG/XRAY/CT EKG: Sinus - Normal sinus rhythm, heart rate 95, no ST elevations or Q waves noted, axis normal, intervals normal, no prior EKG for comparison. XRAY: chest - per my read, noted very faint Left basilar opacification likely c/w COVID-19 PNA Departure - Departure Clinical Impression: Strep pharyngitis, Pneumonia due to COVID-19 virus, Acute kidney injury Asthma exacerbation Qualifiers: Asthma severity: unspecified severity Asthma persistence: unspecified Qualified Code(s): J45.901 - Unspecified asthma with (acute) exacerbation Time of Disposition: 13:30 Disposition: Admit Patient Condition: Fair Referrals: ISABELLA SHORE MD [Primary Care Provider] - 1-2 Weeks Home Medications: Ambulatory Orders LORazepam [Ativan] 0.25 mg PO Q6HR PRN #7 tab 08/23/15 Decision To Admit - Decistion To Admit Decision to Admit Reason: Admit from ER Decision to Admit Date: 05/21/20 Decision to Admit Time: 13:31
[2020-05-21] MEDS ORDERED: IPRATROPIUM/ALBUTEROL 3 ML VIAL NEB ONE (11:42)
[2020-05-21] MEDS ORDERED: DEXAMETHASONE INJ 4 MG/ML VIAL IV ONE (11:42)
[2020-05-21] MEDS ORDERED: ALBUTEROL INHALER 64 PUFF/8GM INH ONE (11:51)
--- NOTE | 2020-05-21 12:01 | RAD ---
EXAM DESCRIPTION: Chest,1 View CLINICAL HISTORY: COVID-19+, dyspnea COMPARISON: 26 February 2010 TECHNIQUE: AP portable chest FINDINGS: The lungs are clear. There is no infiltrate or effusion. The heart is normal size. IMPRESSION: Normal portable chest Electronically signed by: Tay Juan MD 05/21/2020 12:00 PM [employer]
[2020-05-21] MEDS ORDERED: DEXAMETHASONE INJ 4 MG/ML VIAL ONE (12:23)
[2020-05-21] MEDS ORDERED: ONDANSETRON INJ 4 MG/2 ML VIAL IV ONE (13:12)
[2020-05-21] MEDS ORDERED: SODIUM CHLORIDE 0.9% 1000ML 1,000 ML IVS ONE (13:29)
[2020-05-21] MEDS ORDERED: cefTRIAXone SODIUM 1 GM in SODIUM CHL 0.9% 50ML MIN-BAG+ 50 ML IVPB ONE (13:29)
[2020-05-21] MEDS ORDERED: AZITHROMYCIN IV 500 MG in SODIUM CHLORIDE 0.9% 250ML 250 ML IVPB ONE (13:29)
--- NOTE | 2020-05-21 15:00 | HP ---
SUPERVISING PHYSICIAN: Fareed Griggs MD CHIEF COMPLAINT: Increasing shortness of breath. HISTORY OF PRESENT ILLNESS: Ms. Ayoub is a 64 year-old female with a past medical history of hypertension, asthma, that was recently diagnosed with Covid-19 infection on the 4th as well as strep pharyngitis. She presented to the Emergency Department today complaining of worsening shortness of breath over the last week. She endorses that it significantly worsened last night and this morning feels like she cannot catch her breath and she is having a lot of drainage. Vital signs on presentation to the Emergency Room showed oxygen saturation 94% on room air. She is afebrile. Labs showed she tested positive for Covid-19 on the 4th as well as strep pharyngitis. White count was 86,700 with a left shift. Chemistries showed mildly low potassium of 3.5,sodium 132, creatinine 1.67, AST slightly elevated at 50, C-reactive protein 6.6. Troponin less than 0.02. She tested positive again for strep. Urinalysis showed some pyuria with 10 to 20 WBCs on microscopic with rare bacteria. Chest x-ray per radiology interpretation showed lungs to be clear. Coagulation studies showed a slightly elevated D-dimer at 566. Given her recent infection of Covid and developing Covid pneumonitis and worsening shortness of breath showing saturation of 94% on room air, patient is going to placed in observation overnight for close monitoring and 02 status and further treatment and evaluation. She is admitted in stable condition. PAST MEDICAL HISTORY: 1. Hyperlipidemia. 2. Hypertension. 3. Gastroesophageal reflux disease. 4. Gout. 5. Rheumatoid arthritis. 6. Asthma. PAST SURGICAL HISTORY: 1. Right knee scope. 2. Hysterectomy. 3. Tonsillectomy. 4. Right rotator cuff repair. 5. Cholecystectomy. 6. Ovary removal in 1975. CURRENT MEDICATIONS: Awaiting updated list of medications from electronic medical records. ALLERGIES: Codeine, Methotrexate. FAMILY HISTORY: Noncontributory to current plan of care. SOCIAL HISTORY: The patient currently lives in [place], [place]. She is . 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 She has no history of tobacco use, she drinks on a rare social occasion. She denies illicit drug use. REVIEW OF SYSTEMS: CONSTITUTIONAL: Notes some general malaise, denies any actual fever, no unintentional weight loss. HEENT: Positive for nasal drainage and sore throat. Denies headaches, vision changes, earache. CHEST: Positive for cough, worsening shortness of breath as noted in history of present illness. HEART: Denies chest pain, palpitations, syncopal episodes. Says she has a little chest pain when trying to deep breathe and associated cough. ABDOMEN: Denies nausea, vomiting or diarrhea or abdominal pain. : Denies dysuria, hematuria, polyuria. MUSCULOSKELETAL: Denies arthralgias, joint swelling. SKIN: Denies unexplained lesions, rashes, moles or changes. NEUROLOGICAL: Denies ataxia, seizures, paresthesias, generalized weakness. HEMATOLOGICAL: Denies unexplained bleeding, bruising or transfusion reactions. PHYSICAL EXAMINATION: VITAL SIGNS: Initially on presentation to the Emergency Room, oxygen saturation 94% on room air, blood [id number], respirations 28, temperature 97.4, pulse 85. GENERAL: Patient does not look to be in any distress, does look anxious. She is alert. HEENT: Tympanic membranes clear bilaterally. Oropharynx pink, moist without lesions. NECK: Supple, non-tender, full range of motion. No jugular venous distention. CHEST: Lung sounds are actually fairly clear throughout, just a little diminished toward the bases. CARDIOVASCULAR: Regular rate and rhythm without appreciable murmurs, rubs, or gallops. ABDOMEN: Soft, non-tender, positive bowel sounds. BACK: Without CVA or vertebral tenderness. EXTREMITIES: Without cyanosis, clubbing, or edema. NEUROLOGIC: Cranial nerves II through XII are grossly intact. She is alert and oriented x3. SKIN: Warm, pink and dry. RECTAL: Deferred. LABORATORY: White count, 6,700, hemoglobin 13.1, hematocrit 38.6, platelet count 160,000. Differential does show a left shift. Coagulation studies showed D-dimer of 566, PTT 27.3. Chemistries showing mild low sodium of 132, creatinine 1.67, potassium 3.5, calcium 9.1, magnesium 1.9, AST 50, ALT 47, troponin less than 0.02. C-reactive protein 6.5. Urinalysis shows small mild of leukoesterase. Macroscopic reveals 10 to 20 WBCs with 5 to 10 epithelials, rare bacteria. Rapid strep group A was positive. MICROBIOLOGY: Urine cultures pending. Blood cultures pending. influenza A and B by PCR was negative. RADIOLOGY: Portable chest x-ray was unremarkable. ASSESSMENT: 1. Covid-19 pneumonitis without ectopy associated hypoxia. 2. History of asthma. 3. History of hypertension. 4. History of gastroesophageal reflux disease. 5. Rheumatoid arthritis. 6. Hyperlipidemia. PLAN: The patient is going to be placed in observation overnight for close monitoring. She will be started on aggressive treatment, bronchial hygiene with Rocephin, azithromycin, Decadron, Lovenox, Align, Protonix and Remdesivir. Will recheck labs in the morning. She will have oxygen if needed to maintain her 02 saturations to at least 94% or greater. I anticipate length of stay to be at least 1 to 2 days. Hopefully, she can be discharged in the next 24-48 hours. Until the, we will continue to monitor and treat appropriately. #[id number] [facility]
[2020-05-21] MEDS ORDERED: ACETAMINOPHEN 325 MG TAB PO PRN (16:45)
[2020-05-21] MEDS ORDERED: ONDANSETRON INJ 4 MG/2 ML VIAL IV PRN (16:45)
[2020-05-21] MEDS ORDERED: SODIUM CHLORIDE 0.9% (FLUSH) 10 ML SYG IV PRN (16:45)
[2020-05-21] MEDS ORDERED: ALBUTEROL INHALER 64 PUFF/8GM INH PRN (16:48)
[2020-05-21] MEDS ORDERED: MORPHINE SULFATE INJ 10 MG/ML VIAL IV ONE (16:57)
[2020-05-21] MEDS ORDERED: ALPRAZolam 0.25 MG TAB PO PRN (16:57)
[2020-05-21] MEDS ORDERED: IV SET AND CAP CHANGE INJ INJ SCH (17:00)
[2020-05-21] MEDS ORDERED: REMDESIVIR 200 MG in SODIUM CHLORIDE 0.9% 250ML 250 ML IVPB SCH (17:00)
[2020-05-21] MEDS ORDERED: ENOXAPARIN SODIUM 40 MG/0.4 ML SYG SUBCU ONE (19:04)
[2020-05-21] MEDS: ALBUTEROL INHALER 64 PUFF/8GM INH SCH (20:51)
[2020-05-21] MEDS ORDERED: ENOXAPARIN SODIUM 40 MG/0.4 ML SYG SUBCU SCH (21:00)
[2020-05-21] MEDS ORDERED: MONTELUKAST 10 MG TAB ONE (21:28)
[2020-05-21] MEDS: traMADol HCL 50 MG TAB PO SCH (21:29)
[2020-05-21] MEDS: ALLOPURINOL 100 MG TAB PO SCH (21:29)
[2020-05-22] MEDS ORDERED: PANTOPRAZOLE SODIUM IV 40 MG VIAL ONE (03:11)
[2020-05-22] MEDS ORDERED: PANTOPRAZOLE SODIUM IV 40 MG VIAL IV SCH (06:30)
--- NOTE | 2020-05-22 07:08 | RAD ---
EXAM: XR Chest, 1 View CLINICAL HISTORY: COVID TECHNIQUE: Frontal view of the chest. COMPARISON: 05/21/2020 FINDINGS: Lungs: No consolidation. Symmetrical vascular pattern. Pleural space: No pneumothorax or pleural effusion. Heart: Normal cardiac size and configuration. Mediastinum: No abnormality noted. Bones/joints: No osseous destruction or sclerosis noted. IMPRESSION: No abnormality noted. Electronically signed by: Cristiane Rao MD 05/22/2020 7:07 AM [facility]
[2020-05-22] MEDS ORDERED: FUROSEMIDE 40 MG TAB ONE (07:48)
[2020-05-22] MEDS ORDERED: BIFIDOBACTERIUM INFANTIS 4 MG CAP ONE (07:48)
[2020-05-22] MEDS ORDERED: DEXAMETHASONE INJ 10 MG/ML VIAL ONE (07:48)
[2020-05-22] MEDS ORDERED: traMADol HCL 50 MG TAB ONE (07:48)
[2020-05-22] MEDS ORDERED: MELOXICAM 7.5 MG TAB ONE (07:48)
[2020-05-22] MEDS ORDERED: AZITHROMYCIN IV 500 MG VIAL IVPB ONE (07:49)
[2020-05-22] MEDS ORDERED: ALLOPURINOL 100 MG TAB ONE (07:49)
[2020-05-22] MEDS ORDERED: LOSARTAN POTASSIUM 100 MG TAB ONE (07:49)
[2020-05-22] MEDS ORDERED: POTASSIUM CHLORIDE 10 MEQ TAB PO ONE (07:49)
[2020-05-22] MEDS ORDERED: SODIUM CHLORIDE 0.9% 250ML 250 ML ONE (07:49)
[2020-05-22] MEDS ORDERED: SODIUM CHL 0.9% 50ML MIN-BAG+ 50 ML IVPB ONE (07:50)
[2020-05-22] MEDS ORDERED: cefTRIAXone SODIUM 1 GM VIAL ONE (07:50)
[2020-05-22] MEDS ORDERED: HCTZ 25 MG/TRIAMTERENE 37.5 MG 1 EA CAP ONE (07:55)
[2020-05-22] MEDS: ALBUTEROL INHALER 64 PUFF/8GM INH SCH ×3 (08:05→16:47)
[2020-05-22] MEDS: ALLOPURINOL 100 MG TAB PO SCH (08:42)
[2020-05-22] MEDS: traMADol HCL 50 MG TAB PO SCH (08:43)
[2020-05-22] MEDS ORDERED: HCTZ 25 MG/TRIAMTERENE 37.5 MG 1 EA CAP PO SCH (09:00)
[2020-05-22] MEDS ORDERED: NON-FORMULARY MEDICATION 1 EA MIS (Potassium Chloride [Potassium Chloride Er] 10 MEQ) PO SCH (09:00)
[2020-05-22] MEDS ORDERED: LOSARTAN POTASSIUM 100 MG TAB PO SCH (09:00)
[2020-05-22] MEDS ORDERED: DEXAMETHASONE INJ 10 MG/ML VIAL IV SCH (09:00)
[2020-05-22] MEDS ORDERED: POTASSIUM CHLORIDE 10 MEQ TAB PO SCH (09:00)
[2020-05-22] MEDS ORDERED: MELOXICAM 7.5 MG TAB PO SCH (09:00)
[2020-05-22] MEDS ORDERED: BIFIDOBACTERIUM INFANTIS 4 MG CAP PO SCH (09:00)
[2020-05-22] MEDS ORDERED: NON-FORMULARY MEDICATION 1 EA MIS (Meloxicam [Meloxicam] 15 MG) PO SCH (09:00)
[2020-05-22] MEDS ORDERED: cefTRIAXone SODIUM 1 GM in SODIUM CHL 0.9% 50ML MIN-BAG+ 50 ML IVPB SCH (09:00)
[2020-05-22] MEDS ORDERED: NON-FORMULARY MEDICATION 1 EA MIS (Furosemide [Furosemide] 20 MG) PO SCH (09:00)
[2020-05-22] MEDS ORDERED: FUROSEMIDE 40 MG TAB PO SCH (09:00)
[2020-05-22] MEDS ORDERED: AZITHROMYCIN IV 500 MG in SODIUM CHLORIDE 0.9% 250ML 250 ML IVPB SCH (11:00)
--- NOTE | 2020-05-22 14:29 | DS ---
SUPERVISING PHYSICIAN: Fareed Griggs MD DISCHARGE DIAGNOSIS: 1. COVID-19 pneumonitis without associated hypoxia. 2. Streptococcal pharyngitis. 3. History of asthma. 4. History of hypertension. 5. History of gastroesophageal reflux disease. 6. Rheumatoid arthritis. 7. Hyperlipidemia. HISTORY OF PRESENT ILLNESS: This is a 64-year-old female patient with a past medical history of hypertension and asthma that was recently diagnosed with COVID-19 infection on the 4th as well as strep pharyngitis. She came to the Emergency Room complaining of worsening shortness of breath that had progressively worsened over the previous week. It had particularly been worse the night before as well as the morning of admission. Vital signs on presentation to the Emergency Room showed oxygen saturation 94% on room air. She was afebrile. She tested positive for COVID-19. White count was 6,700. Chemistries showed mildly low potassium of 3.5, sodium 132, creatinine 1.67, AST slightly elevated at 50, C-reactive protein 6.6. Troponin less than 0.02. Urinalysis showed some pyuria with 10 to 20 WBCs on microscopic with rare bacteria. Chest x-ray per radiology interpretation showed lungs to be clear. Coagulation studies showed a slightly elevated D-dimer at 566. She was placed in the hospital for observation. HOSPITAL COURSE: The patient was placed on the pneumonia and COVID-19 guidelines. She had aggressive bronchial hygiene with scheduled and p.r.n. albuterol. She also was given Rocephin, azithromycin, Decadron and Remdesivir as well as Align and Mucinex. Overnight, her vital signs stabilized. Her O2 saturations remained above 97% on room air. This morning, her lab studies showed WBC 2,600. She had a fibrinogen of 439 with D-dimer of 178. Electrolytes weer basically within normal limits with creatinine 1.15. Preliminary blood cultures showed no growth. Urine cultures showed no growth. This morning's chest x-ray showed no abnormality noted. She will be discharged home today in stable condition. LABORATORY: Labs and films are per the history of present illness. DISCHARGE PLAN: The patient will be discharged home in stable condition. She is to resume her previous diet and increase her activity as tolerated. She has a followup appointment with Dr. Shore on 05/27/20 at 3 PM via Telehealth. In addition to her routine home medications, she will have cefdinir, Align, albuterol, dexamethasone and azithromycin as well as 10 Xanax. Maddy [employer] Ashok was consulted and there were no benzodiazepine issues. She had anticoagulation for DVT prophylaxis while in the hospital. I have told them not to send her home on any Eliquis due to her oxygen saturations that have been above 94% as well as a D-dimer that was at 566 and today is normalized at 178. She was to return to the hospital or followup with Dr. Shore for any problems or complications. DISCHARGE MEDICATIONS: 1. Potassium chloride. 2. Losartan. 3. Triamterene/hydrochlorothiazide. 4. Furosemide. 5. Singulair. 6. Meloxicam. 7. Tramadol. 8. Hydroxychloroquine. 9. Allopurinol. 10. Pantoprazole. 11. Align. 12. Albuterol. 13. Alprazolam. 14. Cefdinir. 15. Dexamethasone. 16. Azithromycin. #[id number] [facility]
[2020-05-22 16:46] VITALS: BP 122/68; TEMP 98; O2SAT 97
[2020-05-22] MEDS ORDERED: REMDESIVIR 100 MG in SODIUM CHLORIDE 0.9% 250ML 250 ML IVPB SCH (17:00)
[2020-05-22] MEDS ORDERED: MONTELUKAST 10 MG TAB PO SCH (21:00)
== END 2020-05-22 16:20 | disposition home or self-care (01) ==
LOC: ER 11:22 → MS 14:59
PROVIDERS: ADMIT Nurse Practitioner Family; ATTEND Nurse Practitioner Acute Care
DX: U07.1 COVID-19 (principal); J12.89 Other viral pneumonia; R09.02 Hypoxemia; J02.0 Streptococcal pharyngitis; E87.6 Hypokalemia; N17.9 Acute kidney failure, unspecified; J45.909 Unspecified asthma, uncomplicated; I10 Essential (primary) hypertension; K21.9 Gastro-esophageal reflux disease without esophagitis; M06.9 Rheumatoid arthritis, unspecified; E78.5 Hyperlipidemia, unspecified; M10.9 Gout, unspecified; Z79.1 Long term (current) use of non-steroidal anti-inflammatories (NSAID); Z79.899 Other long term (current) drug therapy; Z88.6 Allergy status to analgesic agent; Z88.8 Allergy status to other drugs, medicaments and biological substances
CPT/HCPCS: 96366; 96367; 96365; 96375 ×2; 96376; 96372; J0696 ×2; J1100 ×3; J2270; J2405; J7030; J7050 ×5; J1650; J0456 ×2; 85379 ×2; 80053 ×2; 87086; 87880; 36415 ×2; 85384; 81001; 86140 ×2; 85025 ×2; 82550; 87040 ×2; 83615 ×2; 83735 ×2; 85730 ×2; 84484; 83880; 71045 ×2; 94760; 94664 ×2; 94640 ×3; 94762; 99285; 93005; G0378; 87502

== ENCOUNTER → 2020-09-04 | Outpatient (CLI) | payer BC | LOC: GMAE 16:58 | PROVIDERS: ATTEND Family Medicine | DX: M06.9 Rheumatoid arthritis, unspecified (principal) ==